=== PATIENT | male | born 1965 | race Caucasian/White ===

== ENCOUNTER → 2018-10-03 | Outpatient (REF) | payer OTHER ==
[2018-10-03 18:26] LABS: BASO # 0.1 10^3/uL (0.0-0.2); BASO % 1.6 % (0.0-1.0); EOS # 0.4 10^3/uL (0.0-0.50); HEMATOCRIT 46.9 % (42.0-52.0); HEMOGLOBIN 16.7 g/dl (13.5-17.5); LYMPH # 2.2 10^3/uL (1.5-4.5); LYMPH % 31.4 % (24.0-44.0); MEAN CORPUSCULAR HEMOGLOBIN 31.7 pg (27.0-33.0); MEAN CORPUSCULAR HGB CONC 35.6 g/dl (32.0-36.5); MEAN CORPUSCULAR VOLUME 89.2 fl (80.0-96.0); MONO # 0.8 10^3/uL (0.0-0.8); MONO % 11.3 % (0.0-5.0); NEUTROPHILS # 3.5 10^3/uL (1.8-7.7); NEUTROPHILS % 50.6 % (36.0-66.0); PLATELET COUNT, AUTOMATED 311 10^3/uL (150-450); RED BLOOD COUNT 5.26 10^6/uL (4.30-6.10)
[2018-10-04 13:27] LABS: FREE THYROXINE INDEX 2.6 % (1.4-3.8); THYROID STIMULATING HORMONE 1.11 uIU/ML (0.358-3.740); THYROXINE (T4) 8.2 UG/DL (4.5-12.0)
[2018-10-09 15:42] LABS: A1A FOR PHENOTYPE 158 mg/dL (90-200); ASPERGILLUS FLAVUS ABY Negative (Neg:<1:1); ASPERGILLUS FUMIGATUS ABY Negative (Neg:<1:1); ASPERGILLUS NIGER ABY Negative (Neg:<1:1); D001-IgE D pteronyssinus 0.32 kU/L (Class I); G002-IgE Bermuda Grass < 0.10 kU/L (Class 0); G008-IgE Kentucky Bluegrass 1.23 kU/L (Class II); M001-IgE Penicillium chrysogen < 0.10 kU/L (Class 0); M002 IgE Cladosporium herbaru < 0.10 kU/L (Class 0); M003 IgE Aspergillus fumigatu < 0.10 kU/L (Class 0); M006-IgE Alternaria alternata < 0.10 kU/L (Class 0); T001-IgE Maple/Box Elder 0.15 kU/L (Class 0/I); T003-IgE Common Silver Birch 4.17 kU/L (Class IV); T006-IgE Cedar, Mountain < 0.10 kU/L (Class 0); T007-IgE Oak, White 0.39 kU/L (Class I); T008-IgE Elm, American 0.16 kU/L (Class 0/I); T015-IgE Ash, White < 0.10 kU/L (Class 0); T041-IgE Hickory, White 0.11 kU/L (Class 0/I); T070-IgE White Mulberry 0.31 kU/L (Class 0/I); W001-IgE Ragweed, Short 0.25 kU/L (Class 0/I); W009-IgE Plantain, English 0.12 kU/L (Class 0/I); W014-IgE Pigweed, Rough < 0.10 kU/L (Class 0); W018-IgE Sheep Sorrel < 0.10 kU/L (Class 0)
== END ==
LOC: M LAB REF 16:58
PROVIDERS: ATTEND Internal Medicine Pulmonary Disease
DX: J44.1 Chronic obstructive pulmonary disease with (acute) exacerbation (principal); Z87.891 Personal history of nicotine dependence

== ENCOUNTER → 2018-12-26 | Outpatient (CLI) | payer OTHER ==
--- NOTE | 2018-12-26 16:29 | REP ---
Clinical: Moderate persistent asthma. Technique: Axial noncontrast images from the thoracic inlet to the upper abdomen with coronal and sagittal re-formations. Comparison: None. Findings: The bilateral lung dotson are well-aerated and clear. Minimal mild perihilar and infrahilar bronchiectasis with subtle peribronchial thickening is consistent with history of chronic reactive airway disease. Small focal area of scarring noted in the lateral right upper lobe (images [id number]). No acute consolidation, significant nodule or mass lesion. No pleural effusion. No pneumothorax. No adenopathy. Mediastinum demonstrates normal thoracic aorta, pulmonary vasculature and heart/pericardium. Limited upper abdomen demonstrates normal bilateral adrenal glands. Musculoskeletal structures are intact. Impression: 1. Minimal chronic-appearing changes as described above consistent with asthma/chronic reactive airway disease. 2. No acute mediastinal or pleuroparenchymal process appreciated. Electronically Signed by Toy Wallis MD 12/26/2018 04:21 P
== END ==
LOC: M RAD 15:49
PROVIDERS: ATTEND Internal Medicine Pulmonary Disease
DX: J45.40 Moderate persistent asthma, uncomplicated (principal)